=== PATIENT | male | born 1945 | race Hispanic/Latino ===

== ENCOUNTER 2019-02-19 07:14 | Emergency (ER) | payer MEDICARE ==
[2019-02-19 07:21] VITALS: TEMP 97.1
[2019-02-19] MEDS ORDERED: LABETALOL INJ 5 MG/ML VIAL ONE (07:32)
[2019-02-19] MEDS ORDERED: LABETALOL INJ 5 MG/ML VIAL IV ONE ×2 (07:35)
--- NOTE | 2019-02-19 07:39 | ED.PDOC ---
History of Present Illness - General Chief Complaint: Neuro Symptoms/Deficits Stated Complaint: right arm numbness, facial droop Time Seen by Provider: 02/19/19 07:24 Source: patient, family Exam Limitations: language barrier - History of Present Illness Initial Comments: Pt began having numbness in R arm yesterday around noon. Today pt fell to floor trying to get out of bed. Denies head injury. Pt's son also says pt"s speech is slurred today. Pt has not tried to swallow today Timing/Duration: 24 hours Severity: severe Improving Factors: nothing Worsening Factors: nothing Associated Symptoms: numbness in legs/feet - R arm is numb, slurred speech, weakness - Can't move R arm Allergies/Adverse Reactions: Allergies NO KNOWN ALLERGY Allergy (Verified 07/08/16 11:41) Home Medications: Ambulatory Orders Meloxicam [Mobic] 7.5 mg PO DAILY #7 tab 07/08/16 Review of Systems - Review of Systems Constitutional: States: weakness EENTM: States: no symptoms reported Respiratory: States: no symptoms reported Cardiology: Denies: chest pain, edema, syncope Gastrointestinal/Abdominal: States: no symptoms reported Genitourinary: States: no symptoms reported Musculoskeletal: States: no symptoms reported Skin: States: no symptoms reported Neurological: States: see HPI, headache, numbness, weakness Endocrine: States: no symptoms reported Hematologic/Lymphatic: States: no symptoms reported Past Medical History (General) - Patient Medical History Hx Seizures: No Hx Stroke: No Hx Dementia: No Hx Asthma: No Hx of COPD: No Hx Cardiac Disorders: No Hx Congestive Heart Failure: No Hx Pacemaker: No Hx Hypertension: Yes Hx Thyroid Disease: No Hx Diabetes: No Hx Gastroesophageal Reflux: No Hx Renal Disease: No Hx Cancer: No Hx of HIV: No Hx Hepatitis C: No Hx MRSA: No - Vaccination History Hx Tetanus, Diphtheria Vaccination: No Hx Influenza Vaccination: No Hx Pneumococcal Vaccination: No - Social History Hx Tobacco Use: Yes Hx Chewing Tobacco Use: No Hx Alcohol Use: No Hx Substance Use: No Hx Substance Use Treatment: No Hx Depression: No Hx Physical Abuse: No Hx Emotional Abuse: No Hx Suspected Abuse: No Family Medical History - Family History Mother Family History: Unknown Living Status: Physical Exam - Physical Exam General Appearance: Alert, Anxious Eye Exam: bilateral normal ENT Exam: normal ENT inspection, hearing grossly normal Neck: non-tender, full range of motion, supple Respiratory: lungs clear, normal breath sounds, no respiratory distress Cardiovascular/Chest: normal peripheral pulses, regular rate, rhythm, no edema Peripheral Pulses: radial,right: 2+, radial,left: 2+, dorsalis pedis,right: 2+, dorsalis pedis,left: 2+ Gastrointestinal/Abdominal: normal bowel sounds, non tender, soft Extremities Exam: non-tender, no edema Mental Status: alert, depressed affect ob tech Exam: facial asymmetry, facial weakness Motor/Sensory: sensory deficit, weak motor strength RUE, weak motor strength RLE Skin Exam: normal color, warm/dry Progress - EKG/XRAY/CT EKG: Sinus, LBBB Comments: rate 65, ND 168, QRS 158 Stroke Information - Onset of Symptoms Symptoms of Stroke: Aphasia, Weakness of limb, Numbness, Right Hemiparesis Stroke Onset of Symptoms Date: 02/18/19 Stroke Onset of Symptoms Time: 12:00 Departure - Departure Clinical Impression: Cerebrovascular accident Qualifiers: CVA mechanism: thrombosis Precerebral and cerebral artery: middle cerebral artery Laterality of affected vessel: left Qualified Code(s): I63.312 - Cerebral infarction due to thrombosis of left middle cerebral artery Disposition: Transfer to Hospital Condition: Fair Departure Forms: ED Discharge - Pt. Copy, Patient Portal Self Enrollment Home Medications: Ambulatory Orders Meloxicam [Mobic] 7.5 mg PO DAILY #7 tab 07/08/16 Transfer to Outside Facility - Transfer Information Accepting Facility: [facility] Reason for Transfer: required specialist not available - DR STERLING ACCEPTED TRANSFER TO ED DUE TO NO MED BEDS AVAILABLE
--- NOTE | 2019-02-19 07:42 | CT ---
EXAM: Head CLINICAL HISTORY: possible stroke COMPARISON STUDY: None TECHNICAL: Non-contrasted CT images of the brain were performed. FINDINGS: There is mild diffuse cerebral and cerebellar atrophy. There is mild periventricular white matter low-density changes suggesting microvascular disease. A peripheral low density is seen in the midportion of the left parietal lobe suggesting an acute to subacute infarction. There is no intracranial hemorrhage, mass, or mass effect. A small blush of density in the right frontal lobe has the appearance of a venous angioma. The calvarium is intact. IMPRESSION: 1. Acute to subacute left parietal lobe infarction with a background of mild microvascular white matter changes. 2. No evidence of intracranial hemorrhage. This exam was performed according to our departmental dose-optimization program, which includes automated exposure control, adjustment of the mA and/or kV according to patient size and/or use of iterative reconstruction technique. Electronically signed by: Ron Mason MD 02/19/2019 7:39 AM CDT
[2019-02-19 08:42] VITALS: O2SAT 95
[2019-02-19 08:50] VITALS: BP 178/98
== END 2019-02-19 08:50 | disposition short-term general hospital (02) ==
LOC: ER 07:14
DX: I63.312 Cerebral infarction due to thrombosis of left middle cerebral artery (principal); I44.7 Left bundle-branch block, unspecified; I10 Essential (primary) hypertension; Z87.891 Personal history of nicotine dependence

== ENCOUNTER 2019-06-15 05:40 | Day surgery (SDC) | payer OTHER ==
[2019-06-15] MEDS ORDERED: MOXIFLOXACIN HCL (OPHTH) 1 DROP DROPS ONE (05:59)
[2019-06-15] MEDS ORDERED: PROPARACAINE 0.5% OPHTH SOL 15 ML BTTL ONE (05:59)
[2019-06-15] MEDS ORDERED: TROP 1%/CYCLOPEN 1%/PHENYL 2% DROPS ONE ×2 (06:00→09:21)
[2019-06-15] MEDS ORDERED: MIDAZOLAM INJ 2 MG/2 ML VIAL ONE (09:55)
[2019-06-15] MEDS ORDERED: PROPARACAINE 0.5% OPHTH SOL 15 ML BTTL LEFT_EYE ONE (09:58)
[2019-06-15] MEDS ORDERED: LIDOCAINE 1% MPF 2 ML VIAL INJ ONE ×3 (10:06→10:16)
[2019-06-15] MEDS ORDERED: BRIMONIDINE 0.2% OPHTH DROPS LEFT_EYE ONE ×2 (10:07→10:32)
[2019-06-15] MEDS ORDERED: TOBRAMYCIN SULF 0.3 % OPHT SOL 1 DROP LEFT_EYE ONE ×2 (10:07→10:32)
[2019-06-15] MEDS ORDERED: DEXAMETHASONE 0.1% OPHTH SOL 1 DROP LEFT_EYE ONE ×2 (10:07→10:32)
[2019-06-15] MEDS ORDERED: MOXIFLOXACIN HCL (OPHTH) 1 DROP DROPS LEFT_EYE ONE ×2 (10:07→10:31)
== END 2019-06-15 11:12 | disposition home or self-care (01) ==
LOC: AMB 05:40
PROVIDERS: ATTEND Ophthalmology
DX: H25.12 Age-related nuclear cataract, left eye (principal); E11.36 Type 2 diabetes mellitus with diabetic cataract; I10 Essential (primary) hypertension; Z79.82 Long term (current) use of aspirin; Z79.899 Other long term (current) drug therapy
CPT/HCPCS: 00142; 36416; 66984; 82948; J2250

== ENCOUNTER 2019-06-29 05:45 | Day surgery (SDC) | payer OTHER ==
[2019-06-29] MEDS ORDERED: MIDAZOLAM INJ 2 MG/2 ML VIAL ONE (06:57)
[2019-06-29] MEDS ORDERED: TROP 1%/CYCLOPEN 1%/PHENYL 2% DROPS ONE (07:00)
[2019-06-29] MEDS ORDERED: PROPARACAINE 0.5% OPHTH SOL 15 ML BTTL RIGHT_EYE ONE (08:40)
[2019-06-29] MEDS ORDERED: LIDOCAINE 1% MPF 2 ML VIAL INJ ONE (08:45)
[2019-06-29] MEDS ORDERED: DEXAMETHASONE 0.1% OPHTH SOL 1 DROP RIGHT_EYE ONE ×2 (08:49→08:58)
[2019-06-29] MEDS ORDERED: TOBRAMYCIN SULF 0.3 % OPHT SOL 1 DROP RIGHT_EYE ONE ×2 (08:49→08:58)
[2019-06-29] MEDS ORDERED: MOXIFLOXACIN HCL (OPHTH) 1 DROP DROPS RIGHT_EYE ONE ×2 (08:49→08:58)
[2019-06-29] MEDS ORDERED: BRIMONIDINE 0.2% OPHTH DROPS RIGHT_EYE ONE ×2 (08:49→08:58)
== END 2019-06-29 09:42 | disposition home or self-care (01) ==
LOC: AMB 05:45
PROVIDERS: ATTEND Ophthalmology
DX: H25.11 Age-related nuclear cataract, right eye (principal); E11.36 Type 2 diabetes mellitus with diabetic cataract; I10 Essential (primary) hypertension; Z79.82 Long term (current) use of aspirin; Z79.899 Other long term (current) drug therapy; Z79.84 Long term (current) use of oral hypoglycemic drugs
CPT/HCPCS: 00142; 36415; 66984; 82948; J2250

== ENCOUNTER 2020-09-11 10:54 | Inpatient (IN) | payer OTHER ==
--- NOTE | 2020-09-11 11:03 | ED.PDOC ---
History of Present Illness - General Time Seen by Provider: 09/11/20 11:02 Source: patient, RN notes reviewed, Vital Signs reviewed, EMS notes reviewed, parquetry layer Exam Limitations: language barrier - History of Present Illness Comments: 75 yo male comes in via ems per request of his granddaughter with wheezing, and sore throat for 2 days. Has had subjective fever. no known sick contacts, denies any recent hospitalizations or travel. hx of stroke with residual right sided weakness. Feels weak. Denies sob,cp, headache, n/v/d. Allergies/Adverse Reactions: Allergies NO KNOWN ALLERGY Allergy (Verified 09/11/20 11:30) Home Medications: Ambulatory Orders Aspirin [Aspirin Adult Low Dose] 81 mg PO DAILY 06/15/19 Atorvastatin Calcium 40 mg PO DAILY 06/15/19 Metoprolol Tartrate [Lopressor] 1 tablet PO DAILY 06/15/19 metFORMIN HCL [Glucophage] 500 mg PO DAILY 06/15/19 Hydrochlorothiazide 25 mg PO DAILY 09/11/20 Losartan Potassium 100 mg PO DAILY 09/11/20 Nifedipine [Nifedipine ER] 30 mg PO DAILY 09/11/20 Review of Systems - Review of Systems Constitutional: Denies: chills, fever, malaise EENTM: States: throat pain. Denies: blurred vision, double vision, throat swelling, mouth pain Respiratory: States: cough, wheezing. Denies: short of breath Cardiology: Denies: chest pain, palpitations, syncope Gastrointestinal/Abdominal: Denies: abdominal pain, diarrhea, nausea, vomiting Genitourinary: Denies: dysuria, frequency, hematuria Musculoskeletal: Denies: back pain, muscle pain, neck pain Skin: Denies: rash Neurological: States: pre-existing deficit. Denies: headache, numbness, seizure, tingling, tremors, weakness Endocrine: Denies: unexplained weight gain, unexplained weight loss Hematologic/Lymphatic: Denies: blood clots, easy bleeding, easy bruising Past Medical History (General) - Patient Medical History Hx Seizures: No Hx Stroke: No Hx Dementia: No Hx Asthma: No Hx of COPD: No Hx Cardiac Disorders: No Hx Congestive Heart Failure: No Hx Pacemaker: No Hx Hypertension: Yes Hx Thyroid Disease: No Hx Diabetes: Yes Hx Gastroesophageal Reflux: No Hx Renal Disease: No Hx Cancer: No Hx of HIV: No Hx Hepatitis C: No Hx MRSA: No - Vaccination History Hx Tetanus, Diphtheria Vaccination: No Hx Influenza Vaccination: No Hx Pneumococcal Vaccination: No - Social History Hx Tobacco Use: Yes Hx Chewing Tobacco Use: No Hx Alcohol Use: No Hx Substance Use: No Hx Substance Use Treatment: No Hx Depression: No Hx Physical Abuse: No Hx Emotional Abuse: No Hx Suspected Abuse: No Family Medical History - Family History Mother Family History: Unknown Living Status: Physical Exam - Physical Exam General Appearance: Alert, Comfortable, No apparent distress, Well Developed, Well Groomed, Well Hydrated, Well Nourished Eye Exam: bilateral normal ENT Exam: normal ENT inspection, hearing grossly normal, TMs normal, pharyngeal erythema Neck: non-tender, full range of motion, supple, normal inspection, trachea midline Respiratory: chest non-tender, normal breath sounds, no respiratory distress, no accessory muscle use, wheezing Cardiovascular/Chest: normal peripheral pulses, regular rate, rhythm, no edema, no gallop, no JVD, no murmur Gastrointestinal/Abdominal: normal bowel sounds, non tender, soft, no organomegaly, no pulsatile mass Extremity: normal range of motion, non-tender, normal inspection, no pedal edema, no calf tenderness, normal capillary refill, other - distal right leg 2/5 malik, left arm 5/5 muscle strength. 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 Skin Exam: normal color, warm/dry Progress - Progress Progress: 09/11/20 11:17 partial ddx: pneumonia, covid, chf, cad, stroke, influenza COVID positive - patient given IV decadron, will get blood cultures, call for admission. The data reviewed when caring for this patient included: nurse notes, prior records, etc. The history and assessments from nurses notes were reviewed and considered, and the patient's home medication list was also reviewed and considered. My assessment and the results of testing completed here in the ED were discussed with the patient/family. All questions were answered, and they express understanding of my assessment and the plan. patient was transferred to the floor in stable condition. prior to transfer to floor patient's granddaughter states he fell a few days ago and has been having hip pain. Patient did not mention this when I asked if he was having any pain issues earlier. We will get hip xray. I also asked patient if he had any recent falls, which he declined. stating his last fall was after his stroke in january 2019. Telma Solitario DO #[id number] - Results/Orders Results/Orders: 09/11/20 11:15 EKG STAT 09/11/20 12:00 Pulse Ox, Continuous Monitoring STAT 09/11/20 12:26 Sodium Chloride 0.9% 1000ML [Ns 1000 ml] 1,000 ml IVS .QD 09/11/20 13:42 ED Intent to Admit Routine 09/12/20 12:00 Pulse Ox, Continuous Monitoring STAT Laboratory Results WBC 8.8 K/mm3 (4.8-10.8) 09/11/20 11:31 RBC 4.82 M/mm3 (4.70-6.10) 09/11/20 11:31 Hgb 14.9 gm/dL (14.0-18.0) 09/11/20 11:31 Hct 41.8 % (42.0-52.0) L 09/11/20 11:31 MCV 86.7 fl (80.0-94.0) 09/11/20 11:31 MCH 30.8 pg (27.0-31.0) 09/11/20 11:31 MCHC 35.5 g/dL (33.0-37.0) 09/11/20 11:31 RDW 13.9 % (11.5-14.5) 09/11/20 11:31 Plt Count 180 K/mm3 (130-400) 09/11/20 11:31 MPV 10.3 fl (7.40-10.4) 09/11/20 11:31 Absolute Neuts (auto) 7.00 K/uL (1.8-6.8) H 09/11/20 11:31 Absolute Lymphs (auto) 0.70 K/uL (1.0-3.4) L 09/11/20 11:31 Absolute Monos (auto) 1.00 K/uL (0.2-0.8) H 09/11/20 11:31 Absolute Eos (auto) 0.00 K/uL (0.0-0.4) 09/11/20 11:31 Absolute Basos (auto) 0.10 K/uL (0.0-0.1) 09/11/20 11:31 Neutrophils % 79.1 % (42.0-78.0) H 09/11/20 11:31 Lymphocytes % 8.3 % (20.0-50.0) L 09/11/20 11:31 Monocytes % 11.8 % (2.0-9.0) H 09/11/20 11:31 Eosinophils % 0.0 % (1.0-5.0) L 09/11/20 11:31 Basophils % 0.8 % (0.0-2.0) 09/11/20 11:31 PT 10.8 SECONDS (9.0-10.9) 09/11/20 11:31 INR 1.09 (0.9-1.15) 09/11/20 11:31 PTT (SP) 31.3 SECONDS (21.8-31.6) 09/11/20 11:31 D-Dimer, Quantitative 602.0 ng/ml (131-400) H* 09/11/20 11:31 Sodium 130 mmol/L (135-145) L 09/11/20 11:31 Potassium 3.6 mmol/L (3.6-5.0) 09/11/20 11:31 Chloride 96 mmol/L (101-111) L 09/11/20 11:31 Carbon Dioxide 20 mmol/L (21-31) L 09/11/20 11:31 Anion Gap 17.6 (12-18) 09/11/20 11:31 BUN 24 mg/dL (7-18) H 09/11/20 11:31 Creatinine 1.43 mg/dL (0.6-1.3) H 09/11/20 11:31 BUN/Creatinine Ratio 16.8 (10-20) 09/11/20 11:31 Random Glucose 167 mg/dL (70-105) H 09/11/20 11:31 Serum Osmolality 268.6 mOsm/L (275-295) L 09/11/20 11:31 Calcium 9.3 mg/dL (8.4-10.2) 09/11/20 11:31 Magnesium 2.0 mg/dL (1.8-2.5) 09/11/20 11:56 Total Bilirubin 1.8 mg/dL (0.2-1.0) H 09/11/20 11:31 AST 30 IU/L (10-42) 09/11/20 11:31 ALT 17 IU/L (10-60) 09/11/20 11:31 Alkaline Phosphatase 52 IU/L (42-121) 09/11/20 11:31 LD Total 267 IU/L (91-180) H 09/11/20 11:56 Creatine Kinase 251 IU/L (38-174) H* 09/11/20 11:56 Troponin I 0.03 ng/mL (0.01-0.05) 09/11/20 11:31 C-Reactive Protein 19.9 mg/dL (0-1.0) H* 09/11/20 11:56 B-Natriuretic Peptide 49.0 pg/ml (0-100) 09/11/20 11:31 Serum Total Protein 8.2 gm/dL (6.4-8.2) 09/11/20 11:31 Albumin 4.0 g/dl (3.2-5.5) 09/11/20 11:31 Globulin 4.2 gm/dL (2.3-3.5) H 09/11/20 11:31 Albumin/Globulin Ratio 1.0 (1.1-1.9) L 09/11/20 11:31 - EKG/XRAY/CT EKG: Sinus, LBBB Comments: HR 89, no sabrosa criteria. compared to 01/2019 XRAY: chest - Diffuse bilateral airspace opacities scattered throughout both lungs. CT: head: chronic changes from prior stroke, no acute pathology. - Additional EKG/XRAY/Consults XRAY #2: hip - no acute fracture or dislocation. Departure - Departure Clinical Impression: Hypoxemia, KAREN (acute kidney injury), Hyponatremia ICD-10 Supporting Text: COVID Disposition: Admit Patient Home Medications: Ambulatory Orders Aspirin [Aspirin Adult Low Dose] 81 mg PO DAILY 06/15/19 Atorvastatin Calcium 40 mg PO DAILY 06/15/19 Metoprolol Tartrate [Lopressor] 1 tablet PO DAILY 06/15/19 metFORMIN HCL [Glucophage] 500 mg PO DAILY 06/15/19 Hydrochlorothiazide 25 mg PO DAILY 09/11/20 Losartan Potassium 100 mg PO DAILY 09/11/20 Nifedipine [Nifedipine ER] 30 mg PO DAILY 09/11/20 Decision To Admit - Decistion To Admit Decision to Admit Reason: Medical Nature Decision to Admit Date: 09/11/20 Decision to Admit Time: 12:05
[2020-09-11] MEDS ORDERED: ALBUTEROL INHALER 64 PUFF/8GM INH ONE (12:04)
[2020-09-11] MEDS ORDERED: SODIUM CHLORIDE 0.9% 1000ML 1,000 ML IVS PRN (12:26)
--- NOTE | 2020-09-11 12:32 | RAD ---
EXAMINATION: Chest x-ray one view. INDICATION: Cough. COMPARISON: July 08, 2016 TECHNIQUE: Frontal radiograph chest. FINDINGS: The cardiac silhouette is enlarged and stable Diffusely increased interstitial airspace opacities are present throughout both lungs, most prominent at the right lung base in the left midlung zone. There is no pneumothorax. IMPRESSION: Diffuse bilateral airspace opacities scattered throughout both lungs. Findings could relate to pneumonia or CHF changes. Continued follow-up recommended. Electronically signed by: Alexey Amador MD 09/11/2020 12:31 PM CDT
--- NOTE | 2020-09-11 13:14 | CT ---
EXAM: CT HEAD WITHOUT CONTRAST HISTORY: fall. TECHNIQUE: CT of the head was obtained without contrast. The CT exam was performed using one or more of the following dose reduction techniques: Automated exposure control, adjustment of the mA and/or kV according to patient size, and/or use of iterative reconstruction technique. COMPARISON: Head CT from 02/19/2019. FINDINGS: Parenchyma: No mass, acute hemorrhage or CT evidence of large acute vascular territory insult. Stable mild chronic small vessel ischemic changes in the periventricular and deep white matter. A small to moderate size chronic infarct in the left frontal and parietal lobes centered around the central sulcus has increased in size, expected evolution since the previous exam. Ventricles: Normal in size and configuration. No hydrocephalus. Extra-axial spaces: No masses or fluid collections. Dural sinuses: No abnormal densities. Paranasal sinuses/Mastoid air cells: Mild to moderate mucosal thickening in the ethmoid, maxillary and sphenoid sinuses with mild fluid in the sphenoid sinus. Scalp/Skull: No abnormalities. IMPRESSION: 1. No acute intracranial abnormality. 2. Mild chronic small vessel ischemic changes and chronic left MCA distribution infarct. 3. Nonspecific paranasal sinus inflammatory changes. Electronically signed by: Wilbert Odom MD 09/11/2020 1:13 PM CDT
[2020-09-11] MEDS ORDERED: DEXAMETHASONE INJ 10 MG/ML VIAL IV ONE (13:49)
[2020-09-11] MEDS ORDERED: ONDANSETRON INJ 4 MG/2 ML VIAL IV PRN (13:52)
[2020-09-11] MEDS ORDERED: ACETAMINOPHEN 325 MG TAB PO PRN (13:52)
[2020-09-11] MEDS ORDERED: SODIUM CHLORIDE 0.9% (FLUSH) 10 ML SYG IV PRN (13:52)
[2020-09-11] MEDS ORDERED: DEXTROSE 50% 25 GM/50 ML SYG IV PRN (13:56)
[2020-09-11] MEDS ORDERED: GLUCAGON INJ 1 MG VIAL SUBCU PRN (13:56)
[2020-09-11] MEDS ORDERED: ALBUTEROL INHALER 64 PUFF/8GM INH PRN (13:56)
[2020-09-11] MEDS ORDERED: AZITHROMYCIN IV 500 MG in SODIUM CHLORIDE 0.9% 250ML 250 ML IVPB SCH ×2 (14:00→20:00)
[2020-09-11] MEDS ORDERED: IV SET AND CAP CHANGE INJ INJ SCH (14:00)
[2020-09-11] MEDS ORDERED: cefTRIAXone SODIUM 1 GM in SODIUM CHL 0.9% 50ML MIN-BAG+ 50 ML IVPB SCH ×3 (14:00→20:00)
[2020-09-11] MEDS ORDERED: ALBUTEROL INHALER 64 PUFF/8GM INH SCH (16:00)
[2020-09-11 16:13] VITALS: BP 113/67; TEMP 98.2
[2020-09-11 16:28] VITALS: O2SAT 91
[2020-09-11] MEDS ORDERED: INSULIN LISPRO 100 UNITS/ML PEN SUBCU SCH (16:30)
[2020-09-11] MEDS ORDERED: INSULIN LISPRO 100 UNITS/ML PEN SUBCU ONE (16:30)
--- NOTE | 2020-09-11 16:41 | RAD ---
EXAM: Hip,Right 2 Views CLINICAL INDICATION: 75-year-old male with hip pain. COMPARISON: None. TECHNIQUE: Two views of the RIGHT hip were obtained in AP and lateral projection. FINDINGS: There is no fracture or dislocation. The joint spaces are preserved. No soft tissue abnormalities are seen. IMPRESSION: No acute radiographic abnormality. Electronically signed by: Vi Irving MD 09/11/2020 4:39 PM CDT
[2020-09-11] MEDS ORDERED: SODIUM CHLORIDE 0.9% 250ML 250 ML ONE (17:02)
[2020-09-11] MEDS ORDERED: REMDESIVIR 200 MG in SODIUM CHLORIDE 0.9% 250ML 250 ML IVPB SCH (18:00)
[2020-09-11] MEDS ORDERED: ENOXAPARIN SODIUM 60 MG/0.6 ML SYG SUBCU SCH (21:00)
[2020-09-12] MEDS ORDERED: PANTOPRAZOLE SODIUM IV 40 MG VIAL IV SCH (06:30)
[2020-09-12] MEDS ORDERED: DEXAMETHASONE INJ 10 MG/ML VIAL IV SCH (09:00)
--- NOTE | 2020-09-12 09:27 | SSS ---
SUPERVISING PHYSICIAN: Colin Kirby MD DATE OF ADMISSION: 09/11/12 DATE OF DISCHARGE: 09/11/20 ADMISSION DIAGNOSIS: 1. COVID pneumonia with hypoxia. 2. Hypertension. 3. Diabetes mellitus on oral therapy. 4. History of previous stroke with residual right sided weakness. DISCHARGE DIAGNOSIS: 1. COVID pneumonia with worsening hypoxia requiring increasing FIO2. 2. Hypertension. 3. Diabetes mellitus on oral therapy. 4. History of previous stroke with residual right sided weakness. 5. Left bundle branch block, not acute finding. CHIEF COMPLAINT: COVID pneumonia with worsened hypoxia. HISTORY OF PRESENT ILLNESS: Mr. Boothe is a 75-year-old male who initially presented to the Emergency Room today via EMS at the request of his granddaughter because he had been wheezing and having a sore throat for the last 2 days. He denied any contacts with people with COVID, recent hospitalizations or any travel. He does have a history of stroke with residual right sided weakness and notes he feels weak. He actually was was denying initially shortness of breath, chest pains. He did report he had a subjective fever at home. His labs showed white count 8,800 with a left shift. Coagulation studies showed elevated D-dimer of 602. Chemistries showed sodium 130, creatinine 1.43, C-reactive protein 19.9, troponin 0.03, BNP normal at 49. Bilirubin elevated at 1.8. His nasal swab for COVID was positive. Influenza A and B by PCR was negative. Blood cultures were completed. It was requested the patient be admitted for further treatment of COVID pneumonia based on his labs, physical findings and his chest x-ray that per radiologic interpretation showed significant amount of diffuse bilateral airspace opacities scattered throughout both lungs. Initially, he was showing satisfactory in the Emergency Room on room air in the 80s at 89% and on admission to the Floor, his saturation was actually 92-94% on 2 liter nasal cannula. However, within 2 hours of being on the Floor, he was requiring increasing FIO2 and was only maintaining 91% on a nonrebreather. He was not in any respiratory distress, but given his increasing need for oxygen and underlying diagnosis of COVID pneumonia and significantly elevated labs in regards to the COVID, the patient was transferred to [facility] [place] for additional treatment and evaluation needing convalescent serum. He was given a dose of Remdesivir before he left, Decadron, azithromycin, Rocephin and multiple breathing treatments. He was transferred via ground ambulance. The patient was [id number] and an park interpreter was utilized to obtain medical history, however, the patient is a very poor historian. PAST MEDICAL HISTORY: 1. Diabetes mellitus, type 2. 2. Hypertension. 3. Previous cerebrovascular accident with residual right sided weakness. PAST SURGICAL HISTORY: 1. Appendectomy in [place]. HOME MEDICATIONS: We are awaiting updated list and verification. 1. Lopressor. 2. Hydrochlorothiazide. 3. Nifedipine. 4. Losartan. 5. Atorvastatin. 6. Aspirin. 7. Metformin. ALLERGIES: NO KNOWN DRUG ALLERGIES LISTED. FAMILY HISTORY: Noncontributory. SOCIAL HISTORY: The patient lives with his family in [place]. He is . He is retired. He denies any alcohol, illicit drug use or tobacco use. REVIEW OF SYSTEMS: CONSTITUTIONAL: Positive for subjective fever and general malaise. Negative for chills or unintentional weight loss. HEENT: Positive for throat pain. Negative for earaches, vision changes. RESPIRATORY: Positive for cough, wheezing. He denies any actual shortness of breath. CARDIOVASCULAR: Negative for chest pain, palpitations or syncopal episodes. GASTROINTESTINAL: Negative for nausea, vomiting, diarrhea, constipation. GENITOURINARY: Negative for dysuria, hematuria, polyuria. MUSCULOSKELETAL: Positive for pain in his right hip. Negative for back pain, muscle pain or neck pain. SKIN: Negative for lesions, rashes, moles or unexplained changes. NEUROLOGIC: He has preexisting deficit including right sided residual weakness from previous CVA. He denies any additional weakness or new findings. Denies headaches, numbness, seizures, tinging, tremors. ENDOCRINE: Negative for unexplained weight loss or weight gain. No polydipsia or polyuria. HEMATOLOGIC: Negative for easy bruising, unexplained bleeding or transfusion reactions. PHYSICAL EXAMINATION: VITAL SIGNS: On discharge, saturations were 91% on a nonrebreather. Temperature 98.2, pulse 82, blood pressure 113/67, respirations 20-22. No obvious distress. GENERAL: The patient was very stoic, resting, does not appear to be in any distress. HEENT: Tympanic membranes clear bilaterally. Oropharynx is pink, moist without any lesions. NECK: Supple, nontender with full range of motion. No jugular venous distention noted. RESPIRATORY: Lung sounds diminished throughout with rhonchi heard bilaterally in the lateral aspects of both lung nelson. No obvious wheezing. CARDIOVASCULAR: Regular rate and rhythm without any appreciable murmurs, gallops, or rubs. ABDOMEN: Soft, nontender. Positive bowel sounds. EXTREMITIES: There is no edema. NEUROLOGIC: Cranial nerves II-XII are grossly intact. He did have a slight residual weakness on the right side. No obvious slurred speech. No other focal deficits noted.The patient is alert and oriented times three. LABORATORY: CBC showed white count 8,800, hemoglobin 14.9, hematocrit 41.8, platelet count 180,000. Differential did show a left shift. Coagulation studies showed an elevated D-dimer of 602, PT, PTT were normal. Chemistries showed sodium 130, potassium 3.6, glucose 167 correcting of sodium to 132. Calcium 9.3, magnesium 2.0, bilirubin a little elevated at 1.8, AST and ALT both normal. LDH elevated at 267, creatinine kinase elevated at 251. Troponin normal at 0.03. C-reactive protein elevated at 19.0. RADIOLOGY: 12-lead EKG showed an left bundle branch block with a sinus rhythm. Previous EKG on 02/19/19 showed no acute changes compared to today's EKG. Left bundle branch block was present at that point. Right hip x-ray showed no acute radiographic findings. CT of the head per radiologic interpretation showed no acute intracranial abnormality. There was moderate chronic small vessel ischemic changes and chronic left MCA distribution infarct, nonspecific for nasal sinus inflammatory changes. Chest x-ray per radiologic interpretation showed diffuse bilateral airspace opacities scattered throughout both lungs. ASSESSMENT: Please see above for admission and discharge diagnosis. HOSPITAL COURSE: Mr Spencer was initially going to be admitted for COVID pneumonia. He was placed on the Unit, but within 2 hours of admission, he was having increasing need for FIO2. Given his finding on his x-ray, clinical assessment and labs, it was felt that he clinically was showing acute deterioration and was going to need more aggressive management at least pulmonary-phelps and probably needs some convalescent serum which is available at [facility] [place]. He was given treatment to include Decadron, Rocephin, azithromycin, breathing treatments and Remdesivir initially prior to discharge/transfer. At discharge, the patient was maintaining O2 saturations 91-92% on a nonrebreather compared to admission of when he was maintaining 94% on 2 liters nasal cannula. The patient was not in any respiratory distress. His vital signs were stable as noted above. He was transferred via ground ambulance after acceptance was secured through [facility] [place]. PLAN: Mr. Spencer was discharged and transferred via ground ambulance for higher level of car for advancing and worsening COVID pneumonia with increasing oxygenation needs. He was accepted as a patient to [facility] [place] and transferred via ground ambulance. CONDITION ON DISCHARGE: Stable, but guarded. DISPOSITION: The patient was transferred to [facility] [place] via ground ambulance. #[id number]
== END 2020-09-11 19:30 | disposition short-term general hospital (02) | DRG 177 ==
LOC: ER 10:54 → MS 14:04 → OBSVTOIN 14:04
PROVIDERS: ADMIT Nurse Practitioner Family; ATTEND Nurse Practitioner Family
DX: U07.1 COVID-19 (principal); J12.89 Other viral pneumonia; I69.351 Hemiplegia and hemiparesis following cerebral infarction affecting right dominant side; R09.02 Hypoxemia; I10 Essential (primary) hypertension; E11.9 Type 2 diabetes mellitus without complications; I44.7 Left bundle-branch block, unspecified; Z79.84 Long term (current) use of oral hypoglycemic drugs; Z79.82 Long term (current) use of aspirin; Z79.899 Other long term (current) drug therapy